=== PATIENT | male | born 1980 | race African-American/Black ===

== ENCOUNTER 2020-02-01 05:21 | Emergency (ER) | payer MEDICAID ==
[~2020-02-01] VITALS: Ht 177.8 cm; Wt 83.0 kg
[2020-02-01 06:42] VITALS: BP 118/82
== END 2020-02-01 07:09 | disposition home or self-care (01) ==
LOC: ER 05:21
DX: S93.401A Sprain of unspecified ligament of right ankle, initial encounter (principal); W01.0XXA Fall on same level from slipping, tripping and stumbling without subsequent striking against object, initial encounter; Y93.89 Activity, other specified; Y92.89 Other specified places as the place of occurrence of the external cause; Y99.8 Other external cause status
CPT/HCPCS: 73610

== ENCOUNTER 2020-08-06 07:30 | Emergency (ER) | payer MEDICAID ==
[~2020-08-06] VITALS: Ht 180.3 cm; Wt 83.0 kg
[2020-08-06 08:42] VITALS: BP 134/92
== END 2020-08-06 09:30 | disposition home or self-care (01) ==
LOC: ER 07:30
DX: S01.412A Laceration without foreign body of left cheek and temporomandibular area, initial encounter (principal); S01.531A Puncture wound without foreign body of lip, initial encounter; J45.909 Unspecified asthma, uncomplicated; F17.210 Nicotine dependence, cigarettes, uncomplicated; Y04.0XXA Assault by unarmed brawl or fight, initial encounter; Y93.89 Activity, other specified; Y92.89 Other specified places as the place of occurrence of the external cause; Y99.8 Other external cause status
CPT/HCPCS: 12011

== ENCOUNTER 2020-09-02 04:01 | Emergency (ER) | payer MEDICAID ==
[~2020-09-02] VITALS: Ht 180.3 cm; Wt 81.6 kg
[2020-09-02 04:03] VITALS: BP 149/95
== END 2020-09-02 05:11 | disposition home or self-care (01) ==
LOC: ER 04:01
DX: S09.8XXD Other specified injuries of head, subsequent encounter (principal); J45.909 Unspecified asthma, uncomplicated; Z48.02 Encounter for removal of sutures; X58.XXXD Exposure to other specified factors, subsequent encounter

== ENCOUNTER 2022-07-12 05:08 | Emergency (ER) | payer MEDICAID ==
[~2022-07-12] VITALS: Ht 177.8 cm; Wt 84.0 kg
[2022-07-12 07:21] VITALS: BP 136/85
== END 2022-07-12 07:59 | disposition home or self-care (01) ==
LOC: ER 05:08
DX: M70.31 Other bursitis of elbow, right elbow (principal); J45.909 Unspecified asthma, uncomplicated; Y93.89 Activity, other specified